=== PATIENT | female | born 1955 | race Caucasian/White ===

== ENCOUNTER 2018-12-30 23:08 | Emergency (ER) | payer SELFPAY, OTHER | END 2018-12-31 02:27 | disposition home or self-care (01) | LOC: JER 23:08 ==

== ENCOUNTER 2020-02-27 10:19 | Emergency (ER) | payer SELFPAY ==
--- OUTSIDE RECORDS SUMMARY | 2020-02-27 10:32 | XMS ---
:1955 Author Organization [facility] Care Team Providers Name Role Phone MerrittPravinMisha Unavailable [phone] Pravin Merritt Unavailable [phone] Bolanos, Raúl Unavailable [phone] Bolanos, Raúl Unavailable [phone] Aszalos, Ofelia Estella Unavailable Unavailable Aszalos, Estella Unavailable Unavailable Aszalos, Estella Unavailable Unavailable Aszalos, Estella Unavailable Unavailable Aszalos, Estella Unavailable Unavailable Aszalos, Estella Unavailable Unavailable Aszalos, Estella Unavailable Unavailable Aszalos, Estella Unavailable Unavailable Aszalos, Estella Unavailable Unavailable Comfort Alexis MD Unavailable Unavailable Comfort Alexis MD Unavailable Unavailable Comfort Alexis MD Unavailable Unavailable Comfort Alexis MD Unavailable Unavailable Comfort Alexis MD Unavailable Unavailable Comfort Alexis MD Unavailable Unavailable Comfort Alexis MD Unavailable Unavailable Comfort Alexis MD Unavailable Unavailable Comfort Alexis MD Unavailable Unavailable Comfort Alexis MD Unavailable Unavailable Comfort Alexis MD Unavailable Unavailable Comfort Alexis MD Unavailable Unavailable Comfort Alexis MD Unavailable Unavailable Comfort Alexis MD Unavailable Unavailable Comfort Alexis MD Unavailable Unavailable Derek Unavailable [phone] Derek Unavailable [phone] Gyawali Unavailable [phone] Gyawali Unavailable [phone] Re-disclosure Warning The records that you are about to access may contain information from federally- assisted alcohol or drug abuse programs. If such information is present, then the following federally mandated warning applies: This information has been disclosed to you from records protected by federal confidentiality rules (42 CFR part 2). The federal rules prohibit you from making any further disclosure of this information unless further disclosure is expressly permitted by the written consent of the person to whom it pertains or as otherwise permitted by 42 CFR part 2. A general authorization for the release of medical or other information is NOT sufficient for this purpose. The Federal rules restrict any use of the information to criminally investigate or prosecute any alcohol or drug abuse patient.The records that you are about to access may contain highly sensitive health information, the redisclosure of which is protected by Article 27-F of the [facility] Public Health law. If you continue you may haveaccess to information: Regarding HIV / AIDS; Provided by facilities licensed or operated by the [facility] Office of Mental Health; or Provided by the [facility] Office for People With Developmental Disabilities. If such information is present, then the following [facility] mandated warning applies: This information has been disclosed to you from confidential records which are protected by state law. State law prohibits you from making any further disclosure of this information without the specific written consent of the person to whom it pertains, or as otherwise permitted by law. Any unauthorized further disclosure in violation of state law may result in a fine or halfway sentence or both. A general authorization for the release of medical or other information is NOT sufficient authorization for further disclosure. Allergies and Adverse Reactions Type Description Substance Reaction Status Data Source(s ) Propensity to Propensity to Propensity to NEXTG EN ([facility] adverse reactions adverse reactions adverse reactions [facility] (disorder) (disorder) (disorder) Craig) Family History Family Member Family Member Family Member Date of Description Data Source(s) Name Gender Status Status Unknown Female Diagnosis 09/08/2017 NEXTGEN ( 12:00:00 AM [facility] al EDT Craig) Encounters Encounter Providers Location Date Indications Data Source(s ) Attender: [facility] 04/11/2019 NEXTGEN (Sa int Raúl Bolanos [place] 05:48:00 Javad PM EST - Medical 04/11/2019 Center) 05:48:00 PM EST Outpatient 04/07/2019 [facility] 10:58:00 Medical Center AM EST Outpatient 04/07/2019 [facility] 12:00:00 Medical Center AM EST Attender: Ofelia [facility] 04/05/2019 NEXTGE N ([facility] 09:34:00 Javad AM EST - Medical 04/05/2019 Center) 09:34:00 AM EST Attender: [facility] 01/26/2019 NEXTGE N ([facility] Reuben [facility] 09:34:00 Javad AM EDT - Medical 01/26/2019 Center) 09:34:00 AM EDT Attender: [facility] 10/04/2018 NEXTGE N ([facility] Reuben [facility] 10:54:00 Javad AM EDT - Medical 10/04/2018 Center) 10:54:00 AM EDT Attender: [facility] 06/28/2018 NEXTGE N ([facility] 02:03:00 Javad PM EST - Medical 06/28/2018 Center) 02:03:00 PM EST OutpatientWell Attender: [facility] 06/04/2018 NE XTGEN ([facility] 01:32:00 Javad Est,40-64years PM EST - Medical 06/04/2018 Center) 01:32:00 PM EST Attender: [facility] 11/10/2017 NEXTGE N ([facility] 10:15:00 Javad AM EDT - Medical 11/10/2017 Center) 10:15:00 AM EDT Attender: Mis [facility] 10/23/2017 NEXTGE N ([facility] 01:07:00 Javad PM EDT - Medical 10/23/2017 Center) 01:07:00 PM [facility] ([facility] 10:11:00 Javad AM EDT - Medical 10/08/2017 Center) 10:11:00 AM EDT Attender: [facility] 09/21/2017 NEXTGE N ([facility] 11:16:00 Javad AM EDT - Medical 09/21/2017 Center) 11:16:00 AM EDT Attender: [facility] 09/08/2017 NEXTGE N ([facility] 10:24:00 Javad AM EDT - Medical 09/08/2017 Center) 10:24:00 AM EDT Attender: Pravin [facility] 09/08/2017 FIDELINA N ([facility] 09:55:00 Javad AM EDT - Medical 09/08/2017 Center) 09:55:00 AM EDT Immunizations Vaccine Date Status Description Data Source(s) Tdap 09/08/2017 12:00:00 AM completed Tdap NEXTG EN ([facility] EDT Craig) Source: New Immunization Record New in 2011. 04/30/2017 12:00:00 completed Influenza, Injectable , NEXTGEN [facility], [facility] Preservative Free Craig) Source: Parents Recall Medications Medication Brand Start Product Dose Route Administrative Pharmacy [facility] Indications Reaction Description Data Name Date Form Instructions Instructions Source(s) Naproxen naprox ORAL active take 1 NEX TGEN 500 MG Oral en 500 2018 {tbl} tablet by ([facility] Tablet mg 12:00: oral route 2 [facility] naproxen tablet 00 AM times every M edical 500 mg EST day with Center) tablet food Hydrochloro hydroc ORAL active take 1 NEXTGEN thiazide hlorot 2018 {tbl} tablet by (Sa int 12.5 MG hiazid 12:00: oral route Brandy sephs Oral Tablet e 12.5 00 AM every day Medical hydrochloro mg EST Center) thiazide tablet 12.5 mg tablet Hydrochloro hydroc ORAL active take 1 NEXTGEN thiazide hlorot 2019 {tbl} tablet by (Sa int 12.5 MG hiazid 12:00: oral route Brandy sephs Oral Tablet e 12.5 00 AM every day Medical hydrochloro mg EST Center) thiazide tablet 12.5 mg tablet Bacitracin bacitr every 4 NEXTGEN 0.5 UNT/MG acin 2018 ed hours over (Sa int Ophthalmic 500 12:00: affected Alexander [facility]ph[facility] Ointment unit/g 00 AM area for Medi norma bacitracin matt EDT 7-10 days Cent er) 500 eye unit/gram ointme eye nt ointment Omeprazole omepra ORAL active take 1 N EXTGEN 20 MG zole 2018 {caps capsule by (Saint Delayed 20 mg 12:00: ule} oral route 2 J osephs Release capsul 00 AM times every Me dical Oral e,chino EDT day before a Cente r) Capsule yed meal omeprazole releas 20 mg e capsule,del ayed release Hydrochloro hydroc 09/21/ .00 ORAL complet take 1 NEXTGEN thiazide hlorot 2018 {tbl} ed tablet by (Sa int 12.5 MG hiazid 12:00: oral route Brandy sephs Oral Tablet e 12.5 00 AM every day Medical hydrochloro mg EDT Center) thiazide tablet 12.5 mg tablet Insurance Providers Payer name Policy type Policy ID Covered Covered alliance party's Policy P chris / Coverage alliance party ID relationship to Leon Inf ormation type leon O 01 HEALTH [id number] SP [id number] SOLUTIONS 8 HEALTH SJR 2013 SP SJR 2013 2 7 SOLUTIONS 27 SELF PAY SP INSURANCE MEDICAID [id number] SP [id number] Problems, Conditions, and Diagnoses Code Display Name Description Problem Type Effective Data Sour ce(s) Dates [id number] Benign essential Benign essential Problem 08/09/2011 NE XTGEN ([facility] hypertension hypertension 12:00:00 AM [facility]) Surgeries/Procedures Procedure Description Date Indications Data Source(s) Well Visit, 06/04/2018 NEXTGEN ([facility],40-64years 12:00:00 AM EST - Medica [facility]) 06/04/2018 12:00:00 AM EST Results ID Date Data Source [id number] 09/30/2019 07:19:00 PM EDT [facility] Name Value Range Interpretation Code Description Data Lisa rce(s) Supporting Document(s ) COV2 [facility] This lab was ordered by MORENA bravo nd reported by [facility]. ID Date Data Source Liver 06/04/2018 03:00:00 PM [facility] Profile.[id number] Name Value Range Interpretation Description Data Sup porting Code Source(s) Document(s ) Alanine 7-30 Above high <content [facility] aminotransferase normal styleCode="Bold"> Judson hs [Enzymatic Alanine Medical activity/volume] Aminotransferase Center in Serum or Plasma (ALT) </content>41 IU/L H<content styleCode="Italic s"> (7-30 IU/L)</content> Aspartate 14-36 <content [facility] aminotransferase styleCode="Bold"> Judson hs [Enzymatic Aspartate Medical activity/volume] Aminotransferase Center in Serum or Plasma (AST) </content>36 IU/L<content styleCode="Italic s"> (14-36 IU/L)</content> Alkaline 38-126 Above high <content [facility] phosphatase normal styleCode="Bold"> Javad [Enzymatic Alkaline Medical activity/volume] Phosphatase (ALP) Cente r in Serum or Plasma </content>131 IU/L H<content styleCode="Italic s"> (38-126 IU/L)</content> Bilirubin.total 0.2-1.3 <content [facility] [Mass/volume] in styleCode="Bold"> Judson hs Serum or Plasma Bilirubin Total Medical </content>0.4 Center MG/DL<content styleCode="Italic s"> (0.2-1.3 MG/DL)</content> Albumin 3.5-5.0 <content [facility] [Mass/volume] in styleCode="Bold"> Judson hs Serum or Plasma Albumin Medical </content>4.3 Center G/DL<content styleCode="Italic s"> (3.5-5.0 G/DL)</content> ID Date Data Source LIPID.[id number] 06/04/2018 03:00:00 PM EST [facility] Name Value Range Interpretation Description Data Sup porting Code Source(s) Document(s ) UNK > 60 Below low normal <content [facility] styleCode="Duglas Javad d">HDL- Medical Cholesterol Center </content>52 MG/DL L<content styleCode="Bettye lics"> (> 60 MG/DL)</conten t> Triglyceride < 150 <content [facility] [Mass/volume] in styleCode="Duglas Javad Serum or Plasma d">Triglycerid Medical es Center </content>82 MG/DL<content styleCode="Bettye lics"> (< 150 MG/DL)</conten t> UNK < 100 Above high normal <content Saint styleCode="Duglas Javad d">LDL-Cholest [facility] Center </content>124 MG/DL H<content styleCode="Bettye lics"> (< 100 MG/DL)</conten t> Cholesterol -<200 <content [facility] [Mass/volume] in styleCode="Duglas Ajvad Serum or Plasma d">Cholesterol Medical </content>192 Center MG/DL<content styleCode="Bettye lics"> (-<200 MG/DL)</conten t> ID Date Data Source Hormones.[id number] 06/04/2018 03:00:00 PM EST [facility] Name Value Range Interpretation Description Data Sup porting Code Source(s) Document(s ) Thyrotropin 0.465-4. <content [facility] [Units/volume] 68 styleCode="Duglas Javad in Serum or d">Thyroid Medical Plasma by Stimulating Center Detection Hormone limit <= 0.05 </content>0.73 mIU/L 3 MIU/L<content styleCode="Bettye lics"> (0.465-4.68 MIU/L)</conten t> ID Date Data Source HematologyRou.[id number] 06/04/2018 03:00:00 PM EST Dat nt [facility] 0500 Name Value Range Interpretation Description Data Sup porting Code Source(s) Document(s ) Leukocytes 4.4-11.0 <content [facility] [#/volume] in styleCode="Bold Javad Blood by ">White Blood Medical Automated count Cell Count Center </content>6.26 KCUMM<content styleCode="Ital ics"> (4.4-11.0 KCUMM)</content > Hematocrit 36.0-46. <content [facility] [Volume 0 styleCode="Bold Javad Fraction] of ">Hematocrit Medical Blood by </content>42.5 Center Automated count %<content styleCode="Ital ics"> (36.0-46.0 %)</content> Hemoglobin 12.3-16. <content [facility] [Mass/volume] in 0 styleCode="Bold Javad Blood ">Hemoglobin Medical </content>14.2 Center G/DL<content styleCode="Ital ics"> (12.3-16.0 G/DL)</content> Erythrocytes 4.0-5.1 <content [facility] [#/volume] in styleCode="Bold Javad Blood by ">Red Blood Medical Automated count Cell Count Center </content>4.76 MCUMM<content styleCode="Ital ics"> (4.0-5.1 MCUMM)</content > Erythrocyte mean 80.0-100 <content [facility] corpuscular .0 styleCode="Bold Javad volume [Entitic ">Mean Medical volume] by Corpuscular Center Automated count Volume </content>89.3 FL<content styleCode="Ital ics"> (80.0-100.0 FL)</content> Platelet mean 8.0-11.0 Above high <content [facility] volume [Entitic normal styleCode="Bold Javad volume] in Blood ">Mean Platelet Medical by Automated Volume Center count </content>11.5 FL H<content styleCode="Ital ics"> (8.0-11.0 FL)</content> Erythrocyte 11.5-14. <content [facility] distribution 5 styleCode="Bold Javad width [Ratio] by ">Red Cell Medical Automated count Distribution Center Width </content>12.5 %<content styleCode="Ital ics"> (11.5-14.5 %)</content> Platelets 130-400 <content Saint [#/volume] in styleCode="Bold Javad Blood by ">Platelet Medical Automated count Count Center </content>282 KCUMM<content styleCode="Ital ics"> (130-400 KCUMM)</content > Erythrocyte mean 26.0-34. <content [facility] corpuscular 0 styleCode="Bold Javad hemoglobin ">Mean Medical [Entitic mass] Corposcular Center by Automated Hemoglobin count </content>29.8 PG<content styleCode="Ital ics"> (26.0-34.0 PG)</content> Erythrocyte mean 32.0-37. <content [facility] corpuscular 0 styleCode="Bold Javad hemoglobin ">Mean Corpus. Medical concentration Hgb Center [Mass/volume] by Concentration Automated count (MCHC) </content>33.4 G/DL<content styleCode="Ital ics"> (32.0-37.0 G/DL)</content> UNK 0 <content Saint styleCode="Bold Javad ">Nucleated Red Medical Blood Cell Center </content>0.0 /100<content styleCode="Ital ics"> (0 /100)</content> UNK 0.0 <content Saint styleCode="Bold Javad ">Nucleated Red Medical Blood Cell Center Count </content>0.00 KCUMM<content styleCode="Ital ics"> (0.0 KCUMM)</content > ID Date Data Source GFR(Creatinine).[id number] 06/04/2018 03:00:00 PM [facility] 0-0500 Name Value Range Interpretation Code Description Data Lisa rce(s) Supporting Document(s ) UNK > 60 <content [facility] styleCode="Bold"> Medical Cent er EGFR </content>90 GFR<content styleCode="Italic s"> (> 60 GFR)</content> ID Date Data Source MROUTINECCDA.[id number] 06/04/2018 03:00:00 PM [facility] -0500 Name Value Range Interpretation Description Data Sup porting Code Source(s) Document(s ) UNK >= 1.0 <content [facility] styleCode="Bold Medical ">AG Ratio Center </content>1.5 NM<content styleCode="Ital ics"> (>= 1.0 NM)</content> Protein 6.3-8.2 <content [facility] [Mass/volum styleCode="Bold Medical e] in Serum ">Total Protein Center or Plasma </content>7.1 G/DL<content styleCode="Ital ics"> (6.3-8.2 G/DL)</content> UNK 4.2-5.8 Above high normal <content [facility] styleCode="Bold Medical ">Hemoglobin Center A1C </content>6.0 % H<content styleCode="Ital ics"> (4.2-5.8 %)</content> UNK 2.3-3.5 <content [facility] styleCode="Bold Medical ">Globulin Center </content>2.8 G/DL<content styleCode="Ital ics"> (2.3-3.5 G/DL)</content> ID Date Data Source [facility].[id number] 06/04/2018 03:00:00 PM EST [facility] Name Value Range Interpretation Description Data Sup porting Code Source(s) Document(s ) Sodium 137-145 <content [facility] [Moles/volume] in styleCode="Bold"> Rick phs Serum or Plasma Sodium Medical </content>140 Center MEQ/L<content styleCode="Italic s"> (137-145 MEQ/L)</content> Potassium 3.5-5.3 <content [facility] [Moles/volume] in styleCode="Bold"> Rick phs Serum or Plasma Potassium Medical </content>4.2 Center MEQ/L<content styleCode="Italic s"> (3.5-5.3 MEQ/L)</content> Chloride 98-107 <content [facility] [Moles/volume] in styleCode="Bold"> [facility] Serum or Plasma Chloride Medical </content>104 Center MEQ/L<content styleCode="Italic s"> (98-107 MEQ/L)</content> Carbon dioxide, 22-30 <content [facility] total styleCode="Bold"> Javad [Moles/volume] in Carbon Dioxide Medical Serum or Plasma </content>28 Center MEQ/L<content styleCode="Italic s"> (22-30 MEQ/L)</content> Creatinine 0.5-1.3 <content [facility] [Mass/volume] in styleCode="Bold"> [facility]son hs Serum or Plasma Creatinine Medical </content>0.7 Center MG/DL<content styleCode="Italic s"> (0.5-1.3 MG/DL)</content> Calcium 8.4-10. <content [facility] [Mass/volume] in 2 styleCode="Bold"> [facility]son hs Serum or Plasma Calcium Medical </content>9.0 Center MG/DL<content styleCode="Italic s"> (8.4-10.2 MG/DL)</content> Aspartate 14-36 <content [facility] aminotransferase styleCode="Bold"> [facility]son hs [Enzymatic Aspartate Medical activity/volume] Aminotransferase Center in Serum or Plasma (AST) </content>36 IU/L<content styleCode="Italic s"> (14-36 IU/L)</content> UNK 7-17 <content [facility] styleCode="Bold"> Javad BUN </content>12 Medical MG/DL<content Center styleCode="Italic s"> (7-17 MG/DL)</content> UNK > 60 <content [facility] styleCode="Bold"> Javad EGFR </content>90 Medical GFR<content Center styleCode="Italic s"> (> 60 GFR)</content> Glucose 74-106 Above high <content [facility] [Mass/volume] in normal styleCode="Bold"> Judson hs Serum or Plasma Glucose Medical </content>116 Center MG/DL H<content styleCode="Italic s"> (74-106 MG/DL)</content> Bilirubin.total 0.2-1.3 <content [facility] [Mass/volume] in styleCode="Bold"> Judson hs Serum or Plasma Bilirubin Total Medical </content>0.4 Center MG/DL<content styleCode="Italic s"> (0.2-1.3 MG/DL)</content> Alkaline 38-126 Above high <content [facility] phosphatase normal styleCode="Bold"> Javad [Enzymatic Alkaline Medical activity/volume] Phosphatase (ALP) Cente r in Serum or Plasma </content>131 IU/L H<content styleCode="Italic s"> (38-126 IU/L)</content> Albumin 3.5-5.0 <content [facility] [Mass/volume] in styleCode="Bold"> Judson hs Serum or Plasma Albumin Medical </content>4.3 Center G/DL<content styleCode="Italic s"> (3.5-5.0 G/DL)</content> Alanine 7-30 Above high <content [facility] aminotransferase normal styleCode="Bold"> Judson hs [Enzymatic Alanine Medical activity/volume] Aminotransferase Center in Serum or Plasma (ALT) </content>41 IU/L H<content styleCode="Italic s"> (7-30 IU/L)</content> ID Date Data Source Liver Profile 06/04/2018 03:00:00 PM [facility] Name Value Range Interpretation Description Data Sup porting Code Source(s) Document(s ) Alanine 7-30 Above high <content [facility] aminotransferase normal styleCode="Bold"> Judson hs [Enzymatic Alanine Medical activity/volume] Aminotransferase Center in Serum or Plasma (ALT) </content>41 IU/L H<content styleCode="Italic s"> (7-30 IU/L)</content> Aspartate 14-36 <content [facility] aminotransferase styleCode="Bold"> Judson hs [Enzymatic Aspartate Medical activity/volume] Aminotransferase Center in Serum or Plasma (AST) </content>36 IU/L<content styleCode="Italic s"> (14-36 IU/L)</content> Albumin 3.5-5.0 <content [facility] [Mass/volume] in styleCode="Bold"> Judson hs Serum or Plasma Albumin Medical </content>4.3 Center G/DL<content styleCode="Italic s"> (3.5-5.0 G/DL)</content> Alkaline 38-126 Above high <content [facility] phosphatase normal styleCode="Bold"> Javad [Enzymatic Alkaline Medical activity/volume] Phosphatase (ALP) Cente r in Serum or Plasma </content>131 IU/L H<content styleCode="Italic s"> (38-126 IU/L)</content> Bilirubin.total 0.2-1.3 <content [facility] [Mass/volume] in styleCode="Bold"> Judson hs Serum or Plasma Bilirubin Total Medical </content>0.4 Center MG/DL<content styleCode="Italic s"> (0.2-1.3 MG/DL)</content> ID Date Data Source LIPID 06/04/2018 03:00:00 PM [facility] Name Value Range Interpretation Description Data Sup porting Code Source(s) Document(s ) Cholesterol -<200 <content Saint [Mass/volume] in styleCode="Duglas [facility] Serum or Plasma d">Cholesterol Medical </content>192 Center MG/DL<content styleCode="Bettye lics"> (-<200 MG/DL)</conten t> UNK > 60 Below low normal <content Saint styleCode="Duglas Javad d">HDL- Medical Cholesterol Center </content>52 MG/DL L<content styleCode="Bettye lics"> (> 60 MG/DL)</conten t> Triglyceride < 150 <content Saint [Mass/volume] in styleCode="Duglas Javad Serum or Plasma d">Triglycerid Medical Center </content>82 MG/DL<content styleCode="Bettye lics"> (< 150 MG/DL)</conten t> UNK < 100 Above high normal <content Saint styleCode="Duglas Javad d">LDL-Cholest [facility] </content>124 MG/DL H<content styleCode="Bettye lics"> (< 100 MG/DL)</conten t> ID Date Data Source Hormones 06/04/2018 03:00:00 PM [facility] Name Value Range Interpretation Description Data Sup porting Code Source(s) Document(s ) Thyrotropin 0.465-4. <content [facility] [Units/volume] 68 styleCode="Duglas Javad in Serum or d">Thyroid Medical Plasma by Stimulating Center Detection Hormone limit <= 0.05 </content>0.73 mIU/L 3 MIU/L<content styleCode="Bettye lics"> (0.465-4.68 MIU/L)</conten t> ID Date Data Source HematologyRou 06/04/2018 03:00:00 PM [facility] Name Value Range Interpretation Description Data Sup porting Code Source(s) Document(s ) Leukocytes 4.4-11.0 <content [facility] [#/volume] in styleCode="Madhavi Javad Blood by ">White Blood Medical Automated count Cell Count Center </content>6.26 KCUMM<content styleCode="Ital ics"> (4.4-11.0 KCUMM)</content > Erythrocyte mean 26.0-34. <content [facility] corpuscular 0 styleCode="Bold Javad hemoglobin ">Mean Medical [Entitic mass] Corposcular Center by Automated Hemoglobin count </content>29.8 PG<content styleCode="Ital ics"> (26.0-34.0 PG)</content> Hematocrit 36.0-46. <content Saint [Volume 0 styleCode="Bold Javad Fraction] of ">Hematocrit Medical Blood by </content>42.5 Center Automated count %<content styleCode="Ital ics"> (36.0-46.0 %)</content> Erythrocytes 4.0-5.1 <content Saint [#/volume] in styleCode="Bold Javad Blood by ">Red Blood Medical Automated count Cell Count Center </content>4.76 MCUMM<content styleCode="Ital ics"> (4.0-5.1 MCUMM)</content > Erythrocyte mean 80.0-100 <content [facility] corpuscular .0 styleCode="Bold Javad volume [Entitic ">Mean Medical volume] by Corpuscular Center Automated count Volume </content>89.3 FL<content styleCode="Ital ics"> (80.0-100.0 FL)</content> Hemoglobin 12.3-16. <content [facility] [Mass/volume] in 0 styleCode="Bold Javad Blood ">Hemoglobin Medical </content>14.2 Center G/DL<content styleCode="Ital ics"> (12.3-16.0 G/DL)</content> Platelet mean 8.0-11.0 Above high <content Saint volume [Entitic normal styleCode="Bold Javad volume] in Blood ">Mean Platelet Medical by Automated Volume Center count </content>11.5 FL H<content styleCode="Ital ics"> (8.0-11.0 FL)</content> Platelets 130-400 <content Saint [#/volume] in styleCode="Bold Javad Blood by ">Platelet Medical Automated count Count Center </content>282 KCUMM<content styleCode="Ital ics"> (130-400 KCUMM)</content > Erythrocyte 11.5-14. <content [facility] distribution 5 styleCode="Bold Javad width [Ratio] by ">Red Cell Medical Automated count Distribution Center Width </content>12.5 %<content styleCode="Ital ics"> (11.5-14.5 %)</content> Erythrocyte mean 32.0-37. <content [facility] corpuscular 0 styleCode="Bold Javad hemoglobin ">Mean Corpus. Medical [facility] [Mass/volume] by Concentration Automated count (MCHC) </content>33.4 G/DL<content styleCode="Ital ics"> (32.0-37.0 G/DL)</content> UNK 0.0 <content [facility] styleCode="Bold Javad ">Nucleated Red Medical Blood Cell Center Count </content>0.00 KCUMM<content styleCode="Ital ics"> (0.0 KCUMM)</content > UNK 0 <content [facility] styleCode="Bold Javad ">Nucleated Red Medical Blood Cell Center </content>0.0 /100<content styleCode="Ital ics"> (0 /100)</content> ID Date Data Source GFR(Creatinine) 06/04/2018 03:00:00 PM [facility] Name Value Range Interpretation Code Description Data Lisa rce(s) Supporting Document(s ) UNK > 60 <content [facility] styleCode="Bold"> Medical Cent er EGFR </content>90 GFR<content styleCode="Italic s"> (> 60 GFR)</content> ID Date Data Source CHMROUTINECCDA 06/04/2018 03:00:00 PM [facility] Name Value Range Interpretation Description Data Sup porting Code Source(s) Document(s ) UNK >= 1.0 <content [facility] styleCode="Bold Medical ">AG Ratio Center </content>1.5 NM<content styleCode="Ital ics"> (>= 1.0 NM)</content> UNK 2.3-3.5 <content [facility] styleCode="Bold Medical ">Globulin Center </content>2.8 G/DL<content styleCode="Ital ics"> (2.3-3.5 G/DL)</content> Protein 6.3-8.2 <content [facility] [Mass/volum styleCode="Bold Medical e] in Serum ">Total Protein Center or Plasma </content>7.1 G/DL<content styleCode="Ital ics"> (6.3-8.2 G/DL)</content> ID Date Data Source BMP 06/04/2018 03:00:00 PM EST [facility] Name Value Range Interpretation Description Data Sup porting Code Source(s) Document(s ) Chloride 98-107 <content [facility] [Moles/volume] in styleCode="Bold"> [facility] Serum or Plasma Chloride Medical </content>104 Center MEQ/L<content styleCode="Italic s"> (98-107 MEQ/L)</content> Potassium 3.5-5.3 <content [facility] [Moles/volume] in styleCode="Bold"> [facility] Serum or Plasma Potassium Medical </content>4.2 Center MEQ/L<content styleCode="Italic s"> (3.5-5.3 MEQ/L)</content> Carbon dioxide, 22-30 <content [facility] total styleCode="Bold"> Javad [Moles/volume] in Carbon Dioxide Medical Serum or Plasma </content>28 Center MEQ/L<content styleCode="Italic s"> (22-30 MEQ/L)</content> Sodium 137-145 <content [facility] [Moles/volume] in styleCode="Bold"> [facility] Serum or Plasma Sodium Medical </content>140 Center MEQ/L<content styleCode="Italic s"> (137-145 MEQ/L)</content> Creatinine 0.5-1.3 <content [facility] [Mass/volume] in styleCode="Bold"> [facility] Serum or Plasma Creatinine Medical </content>0.7 Center MG/DL<content styleCode="Italic s"> (0.5-1.3 MG/DL)</content> UNK 7-17 <content [facility] styleCode="Bold"> Javad BUN </content>12 Medical MG/DL<content Center styleCode="Italic s"> (7-17 MG/DL)</content> Glucose 74-106 Above high <content [facility] [Mass/volume] in normal styleCode="Bold"> [facility] Serum or Plasma Glucose Medical </content>116 Center MG/DL H<content styleCode="Italic s"> (74-106 MG/DL)</content> Aspartate 14-36 <content [facility] aminotransferase styleCode="Bold"> [facility] [Enzymatic Aspartate Medical activity/volume] Aminotransferase Center in Serum or Plasma (AST) </content>36 IU/L<content styleCode="Italic s"> (14-36 IU/L)</content> UNK > 60 <content [facility] styleCode="Bold"> Javad EGFR </content>90 Medical GFR<content Center styleCode="Italic s"> (> 60 GFR)</content> Calcium 8.4-10. <content [facility] [Mass/volume] in 2 styleCode="Bold"> [facility] Serum or Plasma Calcium Medical </content>9.0 Center MG/DL<content styleCode="Italic s"> (8.4-10.2 MG/DL)</content> Alanine 7-30 Above high <content [facility] aminotransferase normal styleCode="Bold"> [facility] [Enzymatic Alanine Medical activity/volume] Aminotransferase Center in Serum or Plasma (ALT) </content>41 IU/L H<content styleCode="Italic s"> (7-30 IU/L)</content> Bilirubin.total 0.2-1.3 <content [facility] [Mass/volume] in styleCode="Bold"> [facility] Serum or Plasma Bilirubin Total Medical </content>0.4 Center MG/DL<content styleCode="Italic s"> (0.2-1.3 MG/DL)</content> Albumin 3.5-5.0 <content [facility] [Mass/volume] in styleCode="Bold"> [facility] Serum or Plasma Albumin Medical </content>4.3 Center G/DL<content styleCode="Italic s"> (3.5-5.0 G/DL)</content> Alkaline 38-126 Above high <content [facility] phosphatase normal styleCode="Bold"> Javad [Enzymatic Alkaline Medical activity/volume] Phosphatase (ALP) Cente r in Serum or Plasma </content>131 IU/L H<content styleCode="Italic s"> (38-126 IU/L)</content> Procedure Social History Code Duration Value Status Description Data Source(s ) Caffeine Use 04/05/2019 completed coffee NEXTGEN (Dat nt Details 12:00:00 AM [facility]) Smoking 04/05/2019 Unknown if completed Unknown if ever NEXTGEN ( [facility] 12:00:00 AM EST ever smoked smoked [facility]) 06/04/2018 Current completed Current NEXTGEN ([facility] 12:00:00 AM EST non-smoker non-smoker [facility]) Smoking Unknown if completed Unknown if ever [facility] ever smoked smoked [facility] Cent[facility] r Alcohol Use [facility]) Vital Signs ID Date Data Source UNK Name Value Range Interpretation Code Description Data Source(s) Oxygen saturation 98 % 98 % NEXTGEN ([facility] in Arterial blood [facility] by Pulse oximetry Center) Body mass index 25.78 kg/m2 Overweight 25.78 kg/m2 NEXT[facility] ([facility] (BMI) [Ratio] [facility]) Respiratory rate 18 /min 18 /min [facility] ([facility]) Body temperature 36.[address] [facility] ([facility]) Heart rate 69 /min 69 /min [facility] ([facility]) Diastolic blood 78 mm[Hg] 78 mm[Hg] NEXTGEN ( [facility] pressure [facility]) Systolic blood 128 mm[Hg] 128 mm[Hg] [facility] ( aint pressure [facility]) Body weight 59.[address] [facility] ([facility]) Body height 152.[address] [facility] ([facility]) Patient Treatment Plan of Care Planned Activity Planned Date Details Description Data Source (s) Naproxen 500 MG Oral Tablet 06/28/2018 NEXTGEN ([facility] 12:00:00 AM [facility]) Hydrochlorothiazide 12.5 MG 06/28/2018 NEXTGEN ([facility] Oral Tablet 12:00:00 AM [facility]) Hydrochlorothiazide 12.5 MG 06/04/2018 NEXTGEN ([facility] Oral Tablet 12:00:00 AM EST [facility]) Bacitracin 0.5 UNT/MG 10/23/2017 NEXTGE N ([facility] Ophthalmic Ointment 12:00:00 AM [facility]) Omeprazole 20 MG Delayed 10/08/2017 NEX TGEN ([facility] Release Oral Capsule 12:00:[address] [facility]) Hydrochlorothiazide 12.5 MG 09/21/2017 NEXTGEN ([facility] Oral Tablet 12:00:00 AM [facility])
[2020-02-27 10:41] VITALS: BP 172/57; PULSE 71; TEMP 98.3; BMI 25.4
--- NOTE | 2020-02-27 10:58 | PDOC ---
History of Present Illness - General Chief Complaint: Injury Stated Complaint: FALL Time Seen by Provider: 02/27/20 10:31 History Source: Patient Exam Limitations: No Limitations - History of Present Illness Initial Comments: 02/27/20 10:53 . 64-year-old female presents to ED with complaints of status post fall yesterday. Patient states was walking when she tripped landing on her right shoulder and arm. Patient states is able to move it but has pain mainly in the right shoulder rating to her right upper arm patient denies skin discoloration or swelling. Patient denies weakness or paresthesia Occurred: reports: yesterday Severity: reports: mild Pain Location: reports: upper extremity Method of Injury: Yes: fall Loss of Consciousness: no loss of consciousness Associated Symptoms (Fall): denies symptoms Past History - Travel History Traveled outside of the country in the last 30 days: No Close contact w/someone who was outside of country & ill: No - Medical History Allergies/Adverse Reactions: Allergies Allergy/AdvReac Type Severity Reaction Status Date / Time No Known Allergies Allergy Verified 12/30/18 23:58 Home Medications: Ambulatory Orders Hydrochlorothiazide [Hctz -] 12.5 mg PO DAILY 09/16/14 Meclizine HCl [Antivert -] 25 mg PO DAILY #30 tablet 06/23/15 Naproxen [Naprosyn -] 500 mg PO BID #28 tablet 06/23/15 Ondansetron [Zofran *Odt*] 8 mg SL TID #30 od.tablet 06/23/15 Pseudoephedrine HCl [Sudafed] 60 mg PO BID 5 Days #20 tablet 12/31/18 Anemia: No Asthma: No Cancer: No Cardiac Disorders: No CVA: No COPD: No CHF: No Dementia: No Diabetes: No GI Disorders: No Disorders: No HTN: Yes Hypercholesterolemia: No Liver Disease: No Seizures: No Thyroid Disease: No - Surgical History Abdominal Surgery: No Appendectomy: Yes Cardiac Surgery: No Cholecystectomy: Yes Lung Surgery: No Neurologic Surgery: No Orthopedic Surgery: No - Reproductive History Is Patient Now?: No - Immunization History Immunization Up to Date: Yes - Psycho-Social/Smoking History Patient Lives Alone: No Lives with/in: spouse/SO Smoking History: Never smoked Have you smoked in the past 12 months: No Information on smoking cessation initiated: No - Substance Abuse Hx (Audit-C & DAST Scrn) How often the patient has a drink containing alcohol: Never Score: In Men: 4 or > Positive; In Women: 3 or > Positive: 0 Screen Result (Pos requires Nsg. Audit-10AR): Negative In the last yr the pt used illegal drug/Rx for NonMed reason: No Score: Yes response is considered Positive: 0 Screen Result (Positive result requires Nsg. DAST-10): Negative Review of Systems - Review of Systems Able to Perform ROS?: Yes Is the patient limited [place]ian proficient: Yes Constitutional: No: Symptoms Reported HEENTM: No: Symptoms Reported Respiratory: No: Symptoms reported Cardiac (ROS): No: Symptoms Reported ABD/GI: No: Symptoms Reported : No: Symptoms Reported Musculoskeletal: Yes: Joint Pain, Muscle Pain Integumentary: No: Symptoms Reported Neurological: No: Symptoms reported *Physical Exam - Vital Signs Last Vital Signs Temp Pulse Resp BP Pulse Ox 98.3 F 71 17 172/57 H 99 02/27/20 10:22 02/27/20 10:22 02/27/20 10:22 02/27/20 10:22 02/27/20 10:22 - Physical Exam General Appearance: Yes: Nourished, Appropriately Dressed. No: Apparent Distress Neck: positive: Normal Thyroid, Supple. negative: Tender, Decreased range of motion Respiratory/Chest: positive: Lungs Clear, Normal Breath Sounds. negative: Respiratory Distress, Accessory Muscle Use Cardiovascular: positive: Regular Rhythm, Regular Rate. negative: Murmur Gastrointestinal/Abdominal: positive: Soft. negative: Tenderness Musculoskeletal: negative: Vertebral Tenderness Extremity: positive: Normal Capillary Refill, Normal Inspection, Normal Range of Motion, Tender (Over upper aspect of right humerus and proximal aspect of right clavicle) Integumentary: positive: Normal Color, Warm, Moist. negative: Swelling, Ecchymosis Neurologic: positive: Normal Mood/Affect, Motor Strength 5/5 (Full range of motion of right upper extremity but noted with discomfort pointing to her right clavicle and upper humerus no crepitus palpated. no palpable or visual deformity. ) ED Treatment Course - RADIOLOGY Radiology Studies Ordered: Category Date Time Status CLAVICLE-RIGHT SIDE [RAD] Stat Radiology 02/27/20 10:31 Ordered HUMERUS-RIGHT [RAD] Stat Radiology 02/27/20 10:36 Ordered SHOULDER-RIGHT [RAD] Stat Radiology 02/27/20 10:31 Ordered Medical Decision Making - Medical Decision Making 02/27/20 10:57 Chief complaint: Status post fall landing on right upper extremity. Exam: Point tenderness to the upper humerus and right clavicle otherwise normal physical exam. Plan: X-ray of the shoulder clavicle and humerus ordered 02/27/20 10:59 X-rays of the right upper extremity clavicle negative for acute subluxation fracture or dislocation. Patient will be discharged home with recommendations to take Tylenol for discomfort. Discharge - Discharge Information Problems reviewed: Yes Clinical Impression/Diagnosis: Contusion of right arm Condition: Good Disposition: HOME - Follow up/Referral - Patient Discharge Instructions Patient Printed Discharge Instructions: DI for Contusion Additional Instructions: Take Tylenol or Motrin for discomfort. Apply ice to the affected area for the next 2 days. Try to avoid movements that trigger discomfort. - Post Discharge Activity
== END 2020-02-27 11:30 | disposition home or self-care (01) ==
LOC: JER 10:19
DX: S40.021A Contusion of right upper arm, initial encounter (principal)
CPT/HCPCS: 73000-TC-RT-FY; 73030-TC-RT-FY; 73060-TC-RT-FY; 99285-25

== ENCOUNTER 2020-04-26 15:38 | Emergency (ER) | payer OTHER ==
[2020-04-26 15:42] VITALS: BP 176/87; PULSE 96; TEMP 97.9; BMI 24.6
== END 2020-04-26 17:10 | disposition home or self-care (01) ==
LOC: JERFT 15:38
DX: M75.01 Adhesive capsulitis of right shoulder (principal); M25.511 Pain in right shoulder
CPT/HCPCS: 73030-TC-RT-FY; 99283-25

== ENCOUNTER 2020-05-16 06:45 | Day surgery (SDC) | payer OTHER ==
[2020-05-14 14:18] VITALS: BMI 24.6
[2020-05-16] MEDS ORDERED: MIDAZOLAM HCL 2 MG/2 ML SINGLE DOSE VIAL ONE (07:43)
[2020-05-16] MEDS ORDERED: ROPIVACAINE HCL 0.5% 30ML VIAL ONE (07:43)
[2020-05-16] MEDS ORDERED: DEXAMETHASONE SOD PHOSPHATE/PF 10 MG/ML SDV ONE (07:43)
[2020-05-16] MEDS ORDERED: EPINEPHrine 1:1,000 1 MG/1 ML - 30ML VIAL (INJECTION) ONE (07:52)
[2020-05-16] MEDS ORDERED: PROPOFOL 20 ML ONE (09:03)
[2020-05-16] MEDS ORDERED: SUCCINYLCHOLINE CHLORIDE 200 MG/10 ML SYRINGE ONE (09:03)
[2020-05-16] MEDS ORDERED: EPHEDRINE SULFATE/0.9% NACL/PF 50 MG/10 ML SYRINGE NR ONE (09:24)
[2020-05-16] MEDS ORDERED: ceFAZolin SODIUM 1 GM VIAL ONE (09:31)
[2020-05-16 16:03] VITALS: TEMP 98.6
[2020-05-16 16:09] VITALS: BP 142/77; PULSE 100
== END 2020-05-16 15:25 | disposition home or self-care (01) ==
LOC: FASU 06:45
PROVIDERS: ATTEND Orthopaedic Surgery Sports Medicine
PROC: 0LS34ZZ Reposition Right Upper Arm Tendon, Percutaneous Endoscopic Approach (ICD-10-PCS; 2020-05-16)
PROC: 0RNJ4ZZ Release Right Shoulder Joint, Percutaneous Endoscopic Approach (ICD-10-PCS; 2020-05-16)
PROC: 0RBJ4ZZ Excision of Right Shoulder Joint, Percutaneous Endoscopic Approach (ICD-10-PCS; 2020-05-16)
PROC: 0RBJ4ZZ Excision of Right Shoulder Joint, Percutaneous Endoscopic Approach (ICD-10-PCS; 2020-05-16)
PROC: 0LQ14ZZ Repair Right Shoulder Tendon, Percutaneous Endoscopic Approach (ICD-10-PCS; principal; 2020-05-16 09:43)
DX: M75.121 Complete rotator cuff tear or rupture of right shoulder, not specified as traumatic (principal); M75.21 Bicipital tendinitis, right shoulder; M19.011 Primary osteoarthritis, right shoulder
CPT/HCPCS: 94760

== ENCOUNTER 2021-07-20 23:35 | Emergency (ER) | payer OTHER ==
[2021-07-21 00:25] VITALS: BP 167/75; PULSE 77; TEMP 99.5; BMI 27.2
[2021-07-21] MEDS ORDERED: SODIUM CHLORIDE 0.9% 500 ML INFUS.BAG IV ONE (01:02)
[2021-07-21] MEDS ORDERED: ACETAMINOPHEN 1000 MG/100 ML BAG IVPB ONE (01:02)
[2021-07-21] MEDS ORDERED: ACETAMINOPHEN INJECTION 100 ML IVPB ONE (01:12)
[2021-07-21 01:41] LABS: BASO % 0.4 % (0-2.0); EOS % 0.9 % (0-4.5); HEMATOCRIT 42.9 % (32.4-45.2); HEMOGLOBIN 14.4 GM/dL (10.7-15.3); LYMPH % 19.9 % (8-40); MCH 29.8 pg (25.7-33.7); MCHC 33.7 g/dl (32.0-36.0); MEAN CELL VOLUME 88.5 fl (80-96); MEAN PLT VOLUME 8.6 fl (7.5-11.1); MONO % 9.1 % (3.8-10.2); NEUT % 69.7 % (42.8-82.8); PLATELET COUNT 270 10^3/uL (134-434); RBC 4.84 M/mm3 (3.60-5.2); RDW 13.6 % (11.6-15.6); WHITE BLOOD COUNT 9.1 K/mm3 (4.0-10.0)
[2021-07-21 01:45] LABS: EPI CELLS 17 /uL (0-25.1); HYALINE CASTS 0 /uL (0-3.1); PH,URINE 6.5 (5.0-8.0); URINE APPEARANCE CLEAR; URINE BACTERIA 133 /uL (0-1359); URINE BILIRUBIN NEGATIVE (NEGATIVE); URINE COLOR YELLOW; URINE GLUCOSE (UA) NEGATIVE (NEGATIVE); URINE KETONE NEGATIVE (NEGATIVE); URINE LEUK ESTERASE 2+ (NEGATIVE); URINE NITRITE NEGATIVE (NEGATIVE); URINE PROTEIN NEGATIVE (NEGATIVE); URINE RBC 4 /uL (0-23.9); URINE UROBILINOGEN 0.2 mg/dL (0.2-1.0); URINE WBC 51 /uL (0-25.8)
[2021-07-21] MEDS ORDERED: CEFTRIAXONE 1,000 MG in DEXTROSE 5%-WATER - 50 ML IVPB ONE (01:48)
[2021-07-21] MEDS ORDERED: CEFTRIAXONE 1 GM/50 ML BAG ONE (01:54)
[2021-07-21 02:02] LABS: ALBUMIN 3.9 g/dl (3.4-5.0); BLOOD UREA NITROGEN 14.4 mg/dL (7-18); MAGNESIUM 2.6 mg/dL (1.8-2.4)
[2021-07-21 02:05] LABS: CREATININE 0.7 mg/dL (0.55-1.3)
[2021-07-21 02:07] LABS: BILIRUBIN,TOTAL 0.3 mg/dL (0.2-1); TOT PROT 7.6 g/dl (6.4-8.2)
[2021-07-21] MEDS ORDERED: metroNIDAZOLE 500 MG TABLET PO ONE (03:39)
[2021-07-21] MEDS ORDERED: metroNIDAZOLE 250 MG TABLET ONE (04:25)
== END 2021-07-21 04:33 | disposition home or self-care (01) ==
LOC: JER 23:35
PROC: 3E0333Z Introduction of Anti-inflammatory into Peripheral Vein, Percutaneous Approach (ICD-10-PCS; principal; 2021-07-20)
PROC: 3E03329 Introduction of Other Anti-infective into Peripheral Vein, Percutaneous Approach (ICD-10-PCS; 2021-07-20)
PROC: 3E03329 Introduction of Other Anti-infective into Peripheral Vein, Percutaneous Approach (ICD-10-PCS; 2021-07-20)
DX: K22.719 Barrett's esophagus with dysplasia, unspecified (principal); K57.92 Diverticulitis of intestine, part unspecified, without perforation or abscess without bleeding; R91.1 Solitary pulmonary nodule
CPT/HCPCS: 36415; 74177-TC; 80053; 81003; 83605; 83690; 83735; 85025; 87086; 99285-25; Q9967

== ENCOUNTER 2023-01-04 23:06 | Emergency (ER) | payer OTHER ==
[2023-01-04 23:16] VITALS: TEMP 98.2; BMI 29.4
[2023-01-05 00:01] VITALS: BP 146/67; PULSE 59; RESP 19
[2023-01-05 00:32] LABS: BASO % 0.5 % (0-2.0); EOS % 1.9 % (0-4.5); HEMATOCRIT 40.5 % (32.4-45.2); HEMOGLOBIN 13.8 GM/dL (10.7-15.3); MCH 29.9 pg (25.7-33.7); MCHC 34.1 g/dl (32.0-36.0); MEAN CELL VOLUME 87.8 fl (80-96); MEAN PLT VOLUME 8.6 fl (7.5-11.1); MONO % 12.1 % (3.8-10.2); NEUT % 43.5 % (42.8-82.8); PLATELET COUNT 258 10^3/uL (134-434); RBC 4.61 M/mm3 (3.60-5.2); RDW 13.5 % (11.6-15.6); WHITE BLOOD COUNT 6.5 K/mm3 (4.0-10.0)
[2023-01-05 00:36] LABS: INR 1.01 (0.83-1.09); PROTHROMBIN TIME (PATIENT) 11.7 SEC (9.7-13.0)
[2023-01-05 00:39] LABS: ACTIVATED PTT 33.3 SECONDS (25.2-36.5)
[2023-01-05 00:48] LABS: POTASSIUM 4.1 mmol/L (3.5-5.1)
[2023-01-05 00:51] LABS: ALBUMIN 3.5 g/dl (3.4-5.0); BLOOD UREA NITROGEN 12.9 mg/dL (7-18); CALCIUM 8.3 mg/dL (8.5-10.1)
[2023-01-05 00:54] LABS: CREATININE 0.6 mg/dL (0.55-1.3)
[2023-01-05 00:55] LABS: BILIRUBIN,TOTAL 0.2 mg/dL (0.2-1); TOT PROT 6.8 g/dl (6.4-8.2)
== END 2023-01-05 05:17 | disposition home or self-care (01) ==
LOC: JER 23:06
DX: R00.2 Palpitations (principal); R91.1 Solitary pulmonary nodule; R06.02 Shortness of breath; R07.89 Other chest pain; R05.9 Cough, unspecified; H92.01 Otalgia, right ear; Z20.822 Contact with and (suspected) exposure to COVID-19
CPT/HCPCS: 0241U-QW; 36415; 71045-TC-FY; 71275-TC; 80053; 84439; 84443; 84484; 85025; 85379; 85610; 85730; 93005; 93010; 99285-25

== ENCOUNTER 2023-11-16 18:08 | Emergency (ER) | payer OTHER ==
[2023-11-16 18:15] VITALS: BP 131/68; PULSE 77; RESP 18; TEMP 98.3; BMI 29.2
[2023-11-16] MEDS ORDERED: ACETAMINOPHEN 325 MG TABLET (FP) ONE (21:06)
[2023-11-16] MEDS: ACETAMINOPHEN 325 MG TABLET (FP) PO ONE (21:09)
== END 2023-11-16 21:23 | disposition home or self-care (01) ==
LOC: JERFT 18:08
DX: M25.572 Pain in left ankle and joints of left foot (principal); M25.472 Effusion, left ankle; M79.662 Pain in left lower leg
CPT/HCPCS: 73610-TC-LT-FY; 93971-TC; 99284-25

== ENCOUNTER 2025-02-02 18:33 | Emergency (ER) | payer OTHER ==
[2025-02-02 18:40] VITALS: BMI 26.2
[2025-02-02] MEDS ORDERED: ACETAMINOPHEN INJECTION 100 ML ONE (19:48)
[2025-02-02] MEDS ORDERED: ONDANSETRON 4 MG/2 ML VIAL ONE (19:48)
[2025-02-02 19:53] LABS: ABSOLUTE IMMATURE GRANULOCYTES 0.01 x10^3/uL (0.0-0.031); BASOPHILS # 0.05 x10^3/uL (0.01-0.08); EOSINOPHIL % 1.6 % (0.7-5.8); EOSINOPHILS # 0.13 x10^3/uL (0.04-0.36); MCHC 32.2 g/dl (32.2-35.5); MEAN CELL VOLUME 92.7 fl (79.4-94.8); MEAN PLT VOLUME 10.8 fl (9.4-12.3); MONOCYTE # 0.68 x10^3/uL (0.24-0.86); MONOCYTE % 8.3 % (4.7-12.5); RDW 12.5 % (12.4-16.4)
[2025-02-02] MEDS: ONDANSETRON 4 MG/2 ML VIAL IVPUSH ONE (20:04)
[2025-02-02] MEDS: SODIUM CHLORIDE 0.9% 500 ML INFUS.BAG IV ONE (20:04)
[2025-02-02] MEDS: ACETAMINOPHEN 1000 MG/100 ML BAG IVPB ONE (20:04)
[2025-02-02 20:19] LABS: GLUCOSE,RANDOM 134.0 mg/dL (74-106); TOT PROT 7.5 g/dl (6.4-8.2)
[2025-02-02 20:22] LABS: ALK PHOS 142.0 U/L (40-150)
[2025-02-02 20:25] VITALS: BP 147/59; PULSE 79; RESP 17; TEMP 98.6
[2025-02-02 20:25] LABS: CREATININE 0.73 mg/dL (0.55-1.3); SGOT/AST 27.0 U/L (5-34); SGPT/ALT 27.0 U/L (0-55)
[2025-02-02 20:29] LABS: CO2 20.0 mmol/L (21-32)
[2025-02-02 20:45] LABS: HCV DIAGNOSTIC IN-HOUSE W/RFLX NON-REACTIVE (NONREACTIVE)
[2025-02-02 20:46] LABS: HIV INTERPRETATION NEGATIVE (NEGATIVE)
== END 2025-02-02 20:52 | disposition home or self-care (01) ==
LOC: JER 18:33
PROC: 3E033NZ Introduction of Analgesics, Hypnotics, Sedatives into Peripheral Vein, Percutaneous Approach (ICD-10-PCS; principal; 2025-02-02)
PROC: 3E033GC Introduction of Other Therapeutic Substance into Peripheral Vein, Percutaneous Approach (ICD-10-PCS; 2025-02-02)
DX: R51.9 Headache, unspecified (principal); R42 Dizziness and giddiness; R11.0 Nausea; M54.2 Cervicalgia
CPT/HCPCS: 36415; 70450-TC; 80053; 85025; 86803; 87389; 87637-QW; 99285-25